=== PATIENT | male | born 1975 | race Caucasian/White ===

== ENCOUNTER 2016-08-21 08:53 | Emergency (ER) | payer OTHER ==
[~2016-08-21] VITALS: Ht 157.5 cm; Wt 68.0 kg
[2016-08-21] MEDS ORDERED: LORAZEPAM 1 MG TABLET ONE (09:09)
[2016-08-21] MEDS ORDERED: LORAZEPAM 1 MG TABLET PO ONE (09:30)
[2016-08-21 10:19] VITALS: BP 139/87
== END 2016-08-21 10:23 | disposition home or self-care (01) ==
LOC: ER 08:55
DX: R06.4 Hyperventilation (principal); F17.210 Nicotine dependence, cigarettes, uncomplicated
CPT/HCPCS: 99282; A4606; Z7610

== ENCOUNTER 2018-11-25 16:08 | Emergency (ER) | payer MEDICAID, OTHER ==
[~2018-11-25] VITALS: Ht 167.6 cm; Wt 70.8 kg
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
--- NOTE | 2018-11-25 16:25 | NUR ---
DR. CHAVEZ AT BEDSIDE FOR EVAL.
[2018-11-25] MEDS ORDERED: KETOROLAC TROMETHAMINE INJ 60 MG/2 ML VIAL IM ONE ×2 (16:37→17:00)
--- NOTE | 2018-11-25 17:45 | NUR ---
Patient discharged to home in stable condition. Written and verbal after care instructions given. Patient verbalizes understanding of instruction.
[2018-11-25 17:46] VITALS: BP 135/72
== END 2018-11-25 17:46 | disposition home or self-care (01) ==
LOC: ER 16:08
DX: M54.41 Lumbago with sciatica, right side (principal); G89.29 Other chronic pain; F17.200 Nicotine dependence, unspecified, uncomplicated
CPT/HCPCS: 96372; 99283; J1885